=== PATIENT | female | born 1950 | race Asian ===

== ENCOUNTER → 2017-12-31 12:16 | Outpatient (CLI) | payer MEDICARE, OTHER, SELFPAY ==
--- NOTE | 2017-12-31 | DI.MG.S_ITS ---
BILATERAL DIGITAL SCREENING MAMMOGRAM 3D/2D WITH CAD: 12/31/2017 CLINICAL: Routine screening. Comparison is made to exams dated: 11/25/2016 mammogram - [facility], 11/22/2014 mammogram, and 11/20/2012 mammogram - [facility]. The tissue of both breasts is heterogeneously dense. This may lower the sensitivity of mammography. Current study was also evaluated with a Computer Aided Detection (CAD) system. No significant masses, calcifications, or other findings are seen in either breast. There has been no significant interval change. IMPRESSION: NEGATIVE There is no mammographic evidence of malignancy. A 1 year screening mammogram is recommended. This exam was interpreted at Station ID: [id number]. NOTE: For mammograms, a report in lay terms will be sent to the patient. Approximately 15% of breast malignancies will not be visualized mammographically. In the management of a palpable breast mass, a negative mammogram must not discourage biopsy of a clinically suspicious lesion. Electronically Signed By: Solomon gonzalez/josie:12/31/2017 16:02:47 letter sent: Normal Exam ACR BI-RADS Category 1: Negative 3341F
== END ==
PROVIDERS: PCP Internal Medicine; Visit Provider Internal Medicine
DX: Z12.31 Encounter for screening mammogram for malignant neoplasm of breast (principal)
CPT/HCPCS: 77063; 77067

== ENCOUNTER → 2019-01-07 15:32 | Outpatient (CLI) | payer MEDICARE, OTHER, SELFPAY ==
--- NOTE | 2019-01-07 | DI.MG.S_ITS ---
BILATERAL DIGITAL SCREENING MAMMOGRAM 3D/2D WITH CAD: 01/07/2019 CLINICAL: Routine screening. Comparison is made to exams dated: 12/31/2017 mammogram, 11/25/2016 mammogram - [facility], and 11/22/2014 mammogram - [facility]. The tissue of both breasts is heterogeneously dense. This may lower the sensitivity of mammography. Current study was also evaluated with a Computer Aided Detection (CAD) system. No significant masses, calcifications, or other findings are seen in either breast. There has been no significant interval change. IMPRESSION: NEGATIVE There is no mammographic evidence of malignancy. A 1 year screening mammogram is recommended. This exam was interpreted at Station ID: [id number]. NOTE: For mammograms, a report in lay terms will be sent to the patient. Approximately 15% of breast malignancies will not be visualized mammographically. In the management of a palpable breast mass, a negative mammogram must not discourage biopsy of a clinically suspicious lesion. Electronically Signed By: Solomon gonzalez/josie:01/08/2019 07:22:25 letter sent: Normal Exam ACR BI-RADS Category 1: Negative 3341F
== END ==
PROVIDERS: PCP Internal Medicine; Visit Provider Internal Medicine
DX: Z12.31 Encounter for screening mammogram for malignant neoplasm of breast (principal)
CPT/HCPCS: 77063; 77067

== ENCOUNTER → 2019-01-29 07:40 | Outpatient (CLI) | payer MEDICARE, OTHER, SELFPAY ==
[2019-01-29 09:24] LABS: Alanine Aminotransferase 27 IU/L (<35); Aspartate Aminotransferase 45 IU/L (14-36); BUN Creatinine Ratio 24.3 (6-22); Blood Urea Nitrogen 17 mg/dL (7-17); Calcium 9.2 mg/dL (8.4-10.2); Carbon Dioxide 28 mmol/L (22-32); Chloride 104 mmol/L (98-107); Cholesterol 220 mg/dL (140-199); Estimated Glomerular Filt Rate > 60.0 mL/min (>60); Glucose 101 mg/dL (80-110); HDL Cholesterol 96 mg/dL (40-60); HEMOLYSIS < 15 (0-50); LDL Cholesterol Calculated 106 mg/dL (<100); Potassium 4.1 mmol/L (3.4-5.1); Sodium 138 mmol/L (137-145); Triglycerides 90 mg/dL (35-150)
== END ==
PROVIDERS: PCP Internal Medicine; Visit Provider Internal Medicine
DX: Z13.1 Encounter for screening for diabetes mellitus (principal); E78.5 Hyperlipidemia, unspecified
CPT/HCPCS: 36415; 80048; 80061; 84450; 84460

== ENCOUNTER → 2019-02-01 13:16 | Outpatient (CLI) | payer MEDICARE, OTHER, SELFPAY | PROVIDERS: PCP Internal Medicine; Visit Provider Internal Medicine | DX: M85.851 Other specified disorders of bone density and structure, right thigh (principal); Z78.0 Asymptomatic menopausal state | CPT/HCPCS: 77080 ==

== ENCOUNTER → 2019-04-07 07:41 | Outpatient (CLI) | payer MEDICARE, OTHER, SELFPAY ==
[2019-04-07 09:55] LABS: Alanine Aminotransferase 26 IU/L (<35); Aspartate Aminotransferase 44 IU/L (14-36); Cholesterol 190 mg/dL (140-199); HDL Cholesterol 87 mg/dL (40-60); LDL Cholesterol Calculated 88 mg/dL (<100); Triglycerides 77 mg/dL (35-150)
== END ==
PROVIDERS: PCP Internal Medicine; Referring Provider Internal Medicine; Visit Provider Internal Medicine
DX: E78.5 Hyperlipidemia, unspecified (principal)
CPT/HCPCS: 36415; 80061; 84450; 84460

== ENCOUNTER → 2019-10-12 14:45 | Outpatient (CLI) | payer MEDICARE, OTHER, SELFPAY ==
--- NOTE | 2019-10-12 | DI.US.S_ITS ---
PROCEDURE: US SOFT TISSUE HEAD AND NECK INDICATIONS: LOCALIZED SWELLING, MASS AND LUMP, NECK TECHNIQUE: Real-time scanning was performed of the neck region of interest, with image documentation. COMPARISON: None. FINDINGS: No left neck mass, fluid collection or adenopathy seen. IMPRESSION: No left neck abnormality seen. If clinical concern persists for mass, consider contrast-enhanced soft tissue neck CT. Dictated by: Foreign LUND Interpreted: Mik Berry MD on 10/12/2019 at 16:09 Approved by: Mik Berry M.D. on 10/12/2019 at 16:40
== END ==
PROVIDERS: PCP Internal Medicine; Referring Provider Internal Medicine; Visit Provider Physician Assistant
DX: R22.1 Localized swelling, mass and lump, neck (principal)
CPT/HCPCS: 76536

== ENCOUNTER → 2020-01-10 10:16 | Outpatient (CLI) | payer MEDICARE, OTHER, SELFPAY ==
--- NOTE | 2020-01-10 | DI.MG.S_ITS ---
BILATERAL DIGITAL SCREENING MAMMOGRAM 3D/2D WITH CAD: 01/10/2020 CLINICAL: Routine screening. Comparison is made to exams dated: 01/07/2019 mammogram, 12/31/2017 mammogram, 12/30/2016 mammogram, and 11/25/2016 mammogram - [facility]. The tissue of both breasts is heterogeneously dense. This may lower the sensitivity of mammography. Current study was also evaluated with a Computer Aided Detection (CAD) system. There is a benign calcification in both breasts. There is a mole marker on the right breast. No significant masses, calcifications, or other findings are seen in either breast. There has been no significant interval change. IMPRESSION: BENIGN There is no mammographic evidence of malignancy. A 1 year screening mammogram is recommended. This exam was interpreted at Station ID: [id number]. NOTE: For mammograms, a report in lay terms will be sent to the patient. Approximately 15% of breast malignancies will not be visualized mammographically. In the management of a palpable breast mass, a negative mammogram must not discourage biopsy of a clinically suspicious lesion. Electronically Signed By: Mikey Ramsay acr/penrad:01/10/2020 11:51:11 letter sent: Normal Exam ACR BI-RADS Category 2: Benign Finding(s) 3342F
== END ==
PROVIDERS: PCP Student in an Organized Health Care Education/Training Program; Referring Provider Student in an Organized Health Care Education/Training Program; Visit Provider Student in an Organized Health Care Education/Training Program
DX: Z12.31 Encounter for screening mammogram for malignant neoplasm of breast (principal)
CPT/HCPCS: 77063; 77067

== ENCOUNTER 2020-07-15 16:06 | Emergency (ER) | payer MEDICARE, OTHER, SELFPAY ==
[2020-07-15 16:13] VITALS: PULSE 80; RESP 14; O2SAT 98
[2020-07-15 16:20] VITALS: BP 188/80; PULSE 82; RESP 16; TEMP 36.7; O2SAT 99
--- NOTE | 2020-07-15 16:23 | PC.NURSE ---
finished Sulfa/meth/tri 7 day course on Friday.
--- NOTE | 2020-07-15 16:31 | ED.SKABFB ---
HPI - Skin/Abscess/Foreign Bdy General Chief complaint: Skin/Abscess/Foreign Body Stated complaint: redness on face,neck, arms Time Seen by Provider: 07/15/20 16:17 Source: patient Mode of arrival: Ambulatory Limitations: no limitations History of Present Illness HPI narrative: This is a 70-year-old female comes in with complaint of rash that is pruritic that arose overnight patient states that she had a spot on her right elbow that was erythematous, swollen and had improved after being treated with Bactrim. She completed her antibiotics on Friday. Since then she has developed a rash in the last day which she describes as being on the face, her lower lip has some mild swelling as well as neck, anterior chest and bilateral hands and forearms. Patient states it is not really present elsewhere she denies any presence on her torso or back or lower extremities. She states she has not had any new exposures otherwise. She denies any new lotions, sun screens or other topical on her skin in that pattern. Patient did try some topical Benadryl which was minimally helpful. She denies any intraoral involvement. She denies any tightness or difficulty with swallowing, she denies any chest pain or shortness of breath. No nausea or vomiting no other GI or urinary symptoms. She has had an allergic reaction to a fertilizer when she has touched it or had exposures with her pupils are lawns. She does not believe she has had any recent exposure. She is unaware of any other drug allergies. She takes medication for dyslipidemia. Related Data Previous Rx's Medication Instructions Recorded atorvastatin 40 mg tablet 40 mg PO DAILY #90 tab 05/31/20 clotrimazole-betamethasone 1 1 applic TOPICAL BID 14 Days #15 g 07/05/20 %-0.05 % topical cream prednisone 40 mg PO DAILY #8 tab 07/15/20 Allergies Allergy/AdvReac Type Severity Reaction Status Date / Time No Known Drug Allergies Allergy Unverified 07/05/20 14:33 Review of Systems Review of Systems ROS Unobtainable: All systems reviewed & are unremarkable except as noted in HPI and below Patient History Medical History (Updated 07/15/20 @ 16:56 by Dulce Reeves DO) Dyslipidemia Social History Smoking Status: Former smoker Smoking Status: Former smoker alcohol intake frequency: 0-2 drinks per day Substance Use Type: does not use Exam Narrative Exam Narrative: GEN: well nourished, well appearing female, alert and oriented x 3, patient appears to be in mild distress. HEENT: Atraumatic, pupils are equal round reactive to light, extraocular movements are intact, nares are clear, Throat is clear without any exudates, erythema, tonsillar enlargement or uvular deviation, patient has some mild erythema and swelling of her outer edge of her lower lip, she does not have any other intraoral involvement. No blistering. HEART: Regular rate and rhythm without murmur, clicks, rubs. LUNGS:Lungs clear to auscultation, no wheezes, rales, crackles, chest moves symmetrically ABD:bowel sounds normal, soft, non-tender, no guarding, rebound, rigidity, no masses noted, no hepatosplenomegaly MSCL: Non-tender, full range of motion. Patient does not have any bony tenderness at the right elbow. Full range of motion. She does have a rubbery most on jeweler like area of swelling adjacent to the elbow but not directly over the joint. It is nontender without any fluctuance. NEURO:CN 2-12 intact, sensation normal SKIN: Patient has an erythematous, patchy raised rash consistent with meals on the face, neck and upper anterior chest as well as bilateral forearms. Patient has some mild erythema over the thenar eminence but no other palmar involvement. There is no blisters. Initial Vital Signs Initial Vital Signs: Vital Signs Pulse Rate 80 07/15/20 16:13 Respiratory Rate 14 07/15/20 16:13 Pulse Oximetry 98 07/15/20 16:13 Course Orders Ordered: Discontinued Medications Prednisone (Prednisone 20 Mg Tablet) 60 mg PO NOW ONE Stop: 07/15/20 16:51 Last Admin: 07/15/20 17:05 Dose: 60 mg Documented by: KATHARINE Vital Signs Vital signs: Vital Signs - 8 hr 07/15/20 16:13 07/15/20 16:20 07/15/20 17:06 Temperature 98.1 F Pulse Rate 80 82 69 Respiratory Rate 14 16 18 Blood Pressure 188/80 H 178/79 H Pulse Oximetry 98 99 97 MDM - Skin/Abscess/Foreign Bdy MDM Narrative Medical decision making narrative: This is a 70-year-old female comes in with complaint of rash that developed last 12 hours after completing an antibiotic 4 days ago. Discussed this may be a reaction to the antibiotic which was Bactrim. Her initial infection has improved and she has follow-up on Friday with her primary care for recheck. No symptoms consistent with a Arreola-Kumar, TENS he has full or other concerning changes. The rash seems to be very specific to sun exposed areas including the face, upper chest at the neckline as well as forearms. Plan for prednisone, Benadryl as needed and patient is already scheduled for follow-up with her primary care. Return precautions were discussed as well as signs and symptoms to watch for. Patient feels comfortable with this plan. Discharge Plan Departure Patient Disposition: Home Clinical Impression: Rash Instructions: DI for Rash Activity Restrictions/Additional Instructions: Follow-up with your physician at your scheduled appointment on Friday. Let them know about your recent symptoms even if they have completely resolved. Keep track of the pad any new exposures, to sunscreens, lotions, soaps, new foods or other potential exposures. Your symptoms may be related to the Bactrim or antibiotic you completed on Friday so be sure to let your physician know. Take steroids once daily until gone. You may take Benadryl or diphenhydramine 25 mg, 1-2 tablets every 6 hours as needed for itching or symptoms. Prescription to [facility] in [place]. Please return for fevers greater 100.4 F, rapidly worsening rash or skin changes, blistering of your rash or involvement of the inside of your mouth, eyes or vaginal area, if you are having tightness or difficulty breathing in her throat wheezing, shortness of breath, lightheadedness or passing out, persistent vomiting, black or bloody stools or other new or concerning symptoms. Prescriptions: New prednisone 20 mg tablet 40 mg PO DAILY Qty: 8 RF: 0 No Action atorvastatin 40 mg tablet 40 mg PO DAILY Qty: 90 RF: 2 clotrimazole-betamethasone 1-0.05 % cream 1 applic topical BID 14 Days Qty: 15 RF: 0 Referrals: Andres Shah MD [Primary Care Provider] -
[2020-07-15] MEDS: predniSONE 20 MG TABLET 60 MG PO (17:05)
[2020-07-15 17:06] VITALS: BP 178/79; PULSE 69; RESP 18; O2SAT 97
== END 2020-07-15 17:08 | disposition home or self-care (01) ==
PROVIDERS: Emergency Provider Emergency Medicine; PCP Student in an Organized Health Care Education/Training Program
DX: R21 Rash and other nonspecific skin eruption (principal)
CPT/HCPCS: 99283

== ENCOUNTER → 2021-01-10 17:08 | Outpatient (CLI) | payer MEDICARE, OTHER, SELFPAY ==
--- NOTE | 2021-01-10 | DI.MG.S_ITS ---
BILATERAL DIGITAL SCREENING MAMMOGRAM 3D/2D WITH CAD: 01/10/2021 CLINICAL: Routine screening. Comparison is made to exams dated: 01/10/2020 mammogram, 01/07/2019 mammogram, and 12/31/2017 mammogram - [facility]. The tissue of both breasts is heterogeneously dense. This may lower the sensitivity of mammography. Current study was also evaluated with a Computer Aided Detection (CAD) system. There is a benign calcification in both breasts. There is a mole marker on the right breast. No significant masses, calcifications, or other findings are seen in either breast. There has been no significant interval change. IMPRESSION: BENIGN There is no mammographic evidence of malignancy. A 1 year screening mammogram is recommended. This exam was interpreted at Station ID: [id number]. NOTE: For mammograms, a report in lay terms will be sent to the patient. Approximately 15% of breast malignancies will not be visualized mammographically. In the management of a palpable breast mass, a negative mammogram must not discourage biopsy of a clinically suspicious lesion. Electronically Signed By: Durga rizvi/josie:01/11/2021 07:53:06 letter sent: Normal Exam ACR BI-RADS Category 2: Benign Finding(s) 3342F
== END ==
PROVIDERS: PCP Student in an Organized Health Care Education/Training Program; Referring Provider Student in an Organized Health Care Education/Training Program; Visit Provider Student in an Organized Health Care Education/Training Program
DX: Z12.31 Encounter for screening mammogram for malignant neoplasm of breast (principal)
CPT/HCPCS: 77063; 77067

== ENCOUNTER → 2021-05-29 10:07 | Outpatient (CLI) | payer MEDICARE, OTHER, SELFPAY | PROVIDERS: PCP Student in an Organized Health Care Education/Training Program; Referring Provider Student in an Organized Health Care Education/Training Program; Visit Provider Student in an Organized Health Care Education/Training Program | DX: M85.89 Other specified disorders of bone density and structure, multiple sites (principal); Z78.0 Asymptomatic menopausal state | CPT/HCPCS: 77080 ==

== ENCOUNTER → 2022-01-24 08:08 | Outpatient (CLI) | payer MEDICARE, OTHER, SELFPAY ==
--- NOTE | 2022-01-24 | DI.MG.S_ITS ---
BILATERAL DIGITAL SCREENING MAMMOGRAM 3D/2D WITH CAD: 01/24/2022 CLINICAL: Routine screening. Comparison is made to exams dated: 01/10/2021 mammogram, 01/10/2020 mammogram, and 01/07/2019 mammogram - [facility]. Both breasts are heterogeneously dense, which may obscure small masses (category c / 51-75% glandular tissue). Current study was also evaluated with a Computer Aided Detection (CAD) system. There is a possible new 0.4 cm irregular equal density focal asymmetry in the right breast at 11 o'clock posterior depth. No other significant masses, calcifications, or other findings are seen in either breast. IMPRESSION: INCOMPLETE: NEEDS ADDITIONAL IMAGING EVALUATION The possible new 0.4 cm irregular equal density focal asymmetry in the right breast is indeterminate. Additional views with possible ultrasound are recommended. Based on the Tyrer Cuzick model (a risk assessment model) the patient's lifetime risk is 7.9% and her 10 year risk is 5.0%. According to the ACR, ACS, and NCCN guidelines, an annual breast MRI exam along with mammogram is recommended if the patient's lifetime risk is 20% or greater. This exam was interpreted at Station ID: [id number]. NOTE: For mammograms, a report in lay terms will be sent to the patient. Approximately 15% of breast malignancies will not be visualized mammographically. In the management of a palpable breast mass, a negative mammogram must not discourage biopsy of a clinically suspicious lesion. Electronically Signed By: Durga rizvi/josie:01/24/2022 17:14:46 letter sent: Additional Imaging Needed ACR BI-RADS Category 0: Incomplete 3340F
== END ==
PROVIDERS: PCP Student in an Organized Health Care Education/Training Program; Referring Provider Student in an Organized Health Care Education/Training Program; Visit Provider Student in an Organized Health Care Education/Training Program
DX: Z12.31 Encounter for screening mammogram for malignant neoplasm of breast (principal)
CPT/HCPCS: 77063; 77067

== ENCOUNTER → 2022-02-26 13:31 | Outpatient (CLI) | payer MEDICARE, OTHER, SELFPAY ==
--- NOTE | 2022-02-26 | DI.MG.S_ITS ---
UNILATERAL RIGHT DIGITAL DIAGNOSTIC MAMMOGRAM 3D/2D WITH ADDITIONAL VIEWS: 02/26/2022 CLINICAL: Additional evaluation requested from prior study. Comparison is made to exams dated: 01/24/2022 mammogram, 01/10/2021 mammogram, and 01/10/2020 mammogram - [facility]. The right breast is heterogeneously dense, which may obscure small masses (category c / 51-75% glandular tissue). The focal asymmetry in the right breast at 11 o'clock posterior depth is not seen in additional views. No other significant masses or calcifications are seen in the breast. IMPRESSION: BENIGN The focal asymmetry in the right breast seen on the screening mammogram likely respresents superimposed fibroglandular tissue and is benign. There is no mammographic evidence of malignancy. Return to annual mammogram screening schedule is recommended. Based on the Tyrer Cuzick model (a risk assessment model) the patient's lifetime risk is 7.9% and her 10 year risk is 5.0%. According to the ACR, ACS, and NCCN guidelines, an annual breast MRI exam along with mammogram is recommended if the patient's lifetime risk is 20% or greater. This exam was interpreted at Station ID: [id number]. NOTE: For mammograms, a report in lay terms will be sent to the patient. Approximately 15% of breast malignancies will not be visualized mammographically. In the management of a palpable breast mass, a negative mammogram must not discourage biopsy of a clinically suspicious lesion. Electronically Signed By: Alexandria fournier/:02/26/2022 13:54:06 letter sent: Normal Exam ACR BI-RADS Category 2: Benign Finding(s) 3342F
== END ==
PROVIDERS: PCP Student in an Organized Health Care Education/Training Program; Referring Provider Student in an Organized Health Care Education/Training Program; Visit Provider Student in an Organized Health Care Education/Training Program
DX: R92.8 Other abnormal and inconclusive findings on diagnostic imaging of breast (principal); N64.89 Other specified disorders of breast
CPT/HCPCS: 77065; G0279

== ENCOUNTER → 2022-06-10 13:51 | Outpatient (CLI) | payer MEDICARE, OTHER, SELFPAY ==
[2022-06-10 14:56] LABS: Alanine Aminotransferase 32 IU/L (<35); Albumin 4.2 g/dL (3.5-5.0); Albumin Globulin Ratio 1.3 (1.0-2.8); Alkaline Phosphatase 80 U/L (38-126); Aspartate Aminotransferase 49 IU/L (14-36); BUN Creatinine Ratio 24.1 (6-22); Bilirubin Total 0.9 mg/dL (0.2-1.3); Blood Urea Nitrogen 21 mg/dL (7-17); Carbon Dioxide 29 mmol/L (22-32); Chloride 103 mmol/L (98-107); Cholesterol 239 mg/dL (140-199); Estimated Glomerular Filt Rate > 60 mL/min (>60); Globulin 3.2 g/dL (1.7-4.1); Glucose 96 mg/dL (80-110); HEMOLYSIS < 15 (0-50); Potassium 3.4 mmol/L (3.4-5.1); Sodium 139 mmol/L (137-145); Total Protein 7.4 g/dL (6.3-8.2); Triglycerides 186 mg/dL (35-150)
[2022-06-10 15:10] LABS: HDL Cholesterol 126 mg/dL (40-60); LDL Cholesterol Calculated 76 mg/dL (<100)
[2022-06-10 17:13] LABS: Hep C Virus Ab w/Reflex Quant NEGATIVE s/c (NEGATIVE)
== END ==
PROVIDERS: PCP Student in an Organized Health Care Education/Training Program; Referring Provider Student in an Organized Health Care Education/Training Program; Visit Provider Student in an Organized Health Care Education/Training Program
DX: E78.2 Mixed hyperlipidemia (principal); N39.3 Stress incontinence (female) (male); Z79.899 Other long term (current) drug therapy; Z11.59 Encounter for screening for other viral diseases
CPT/HCPCS: 36415; 80053; 80061; 86803

== ENCOUNTER → 2023-03-06 09:02 | Outpatient (CLI) | payer MEDICARE, OTHER, SELFPAY ==
--- NOTE | 2023-03-06 09:05 | DI.MG.S_ITS ---
BILATERAL DIGITAL SCREENING MAMMOGRAM 3D/2D WITH CAD: 03/06/2023 CLINICAL: Routine screening. Comparison is made to exams dated: 02/26/2022 mammogram, 01/24/2022 mammogram, and 01/10/2021 mammogram - [facility]. Both breasts are heterogeneously dense, which may obscure small masses (category c / 51-75% glandular tissue). Current study was also evaluated with a Computer Aided Detection (CAD) system. No significant masses, calcifications, or other findings are seen in either breast. There has been no significant interval change. IMPRESSION: NEGATIVE There is no mammographic evidence of malignancy. A 1 year screening mammogram is recommended. Based on the Tyrer Cuzick model (a risk assessment model) the patient's lifetime risk is 7.4% and her 10 year risk is 5.1%. According to the ACR, ACS, and NCCN guidelines, an annual breast MRI exam along with mammogram is recommended if the patient's lifetime risk is 20% or greater. This exam was interpreted at Station ID: [id number]. NOTE: For mammograms, a report in lay terms will be sent to the patient. Approximately 15% of breast malignancies will not be visualized mammographically. In the management of a palpable breast mass, a negative mammogram must not discourage biopsy of a clinically suspicious lesion. Electronically Signed By: Elie arteaga/josie:03/06/2023 12:53:23 letter sent: Normal Exam ACR BI-RADS Category 1: Negative 3341F
== END ==
LOC: MAMMO 09:04
PROVIDERS: Referring Provider Internal Medicine; Visit Provider Internal Medicine
DX: Z12.31 Encounter for screening mammogram for malignant neoplasm of breast (principal); R92.333 Mammographic heterogeneous density, bilateral breasts
CPT/HCPCS: 77063; 77067

== ENCOUNTER → 2023-04-11 14:42 | Outpatient (CLI) | payer MEDICARE, OTHER, SELFPAY ==
--- NOTE | 2023-04-11 | DI.ECHO.S_ITS ---
[facility]---------[facility] +---------+ : : [address] : : : : [id number] : : : : Phone: [phone]+ Echocardiogram Report + + :Name: LIZET PALMA Study Date: 04/11/2023 Height: 59 in : :[facility] : Weight: 115 lb : : Gender: Female BSA: 1.5 m2 : :: 1950 Age: 72 yrs BP: 158/88 mmHg: :Reason For Study: EDEMA : :Ordering Physician: : :JOANNA POOLformed By: Clarence Oneill : :Referring: UNSPECIFIED : + + Interpretation Summary The left ventricle is normal in size and wall thickness. Left ventricular systolic function appears normal without focal wall motion abnormalities. The ejection fraction is estimated to be 60-65%. Diastolic parameters suggest probable normal left ventricular diastolic function and normal filling pressures. The right ventricle is normal in size and function. The right ventricular systolic pressure is estimated to be at least 26 mmHg based on an estimated right atrial pressure of 3 mm Hg. The left atrium is mildly dilated. There is no significant valvular heart disease. The aortic root is normal size. Procedure: A two-dimensional transthoracic echocardiogram with color flow and Doppler was performed. The study quality was technically adequate. There is no prior echocardiogram noted for this patient. The patient was in normal sinus rhythm during the exam. The heart rate ranged between 65-79 bpm during the study. Left Ventricle: The left ventricle is normal in size and wall thickness. Left ventricular systolic function appears normal without focal wall motion abnormalities. The ejection fraction is estimated to be 60-65%. Diastolic parameters suggest probable normal left ventricular diastolic function and normal filling pressures. Right Ventricle: The right ventricle is normal in size and function. Atria: The left atrium is mildly dilated. Right atrial size is normal. Mitral Valve: The mitral valve is normal in structure and function. There is no mitral valve stenosis. There is trace mitral regurgitation. Aortic Valve: The aortic valve is trileaflet. There is no aortic valve stenosis. No aortic regurgitation is present. Tricuspid Valve: The tricuspid valve is normal in structure and function. There is no tricuspid stenosis. There is a trace or physiologic amount of tricuspid regurgitation. The right ventricular systolic pressure is estimated to be at least 26 mmHg based on an estimated right atrial pressure of 3 mm Hg. Pulmonic Valve: The pulmonic valve is normal in structure and function. There is no pulmonic valvular stenosis. There is no pulmonic valvular regurgitation. There is no significant valvular heart disease. Great Vessels: The aortic root is normal size. The dimensions of the ascending aorta are normal. The aortic arch is at the upper limits of normal in size. The IVC is of normal diameter and collapses greater than 50% with a sniff. This suggests a low right atrial pressure of 3 mm Hg. Pericardium/ Pleura There is no pericardial effusion. There is no pleural effusion. MMode/2D Measurements & Calculations LVIDd: 3.8 cm LVOT diam: 1.9 cm LVIDs: 2.4 cm Ao root diam: 2.6 cm FS: 36.5 % asc Aorta Diam: 3.2 cm IVSd: 0.87 cm Ao Arch Diam (Prox Trans): 3.2 cm LVPWd: 0.87 cm LV carlson. diameter/BSA (cm/m^2): 2.6 LV sys. diameter/BSA (cm/m^2): 1.7 LA A2 area: 17.4 cm2 RA long axis: 4.1 cm LA A4 area: 19.0 cm2 RA area: 9.7 cm2 LA length (vol): 5.2 cm RA vol: 19.4 ml LA vol: 54.1 ml RA : 13.3 ml/m2 LA vol index: 37.1 ml/m2 IVC diam: 1.4 cm RVD1 (basal): 4.0 cm RVD2 (mid): 2.9 cm TAPSE: 1.9 cm Doppler Measurements & Calculations Ao V2 max: 128.8 cm/sec LVOT Max Ramez: 92.6 cm/sec Ao V2 mean: 92.3 cm/sec LV V1 max P.4 mmHg Ao max P.6 mmHg LV V1 VTI: 24.7 cm Ao mean P.7 mmHg CHUN(I,D): 2.2 cm2 Ao V2 VTI: 30.6 cm CHUN(V,D): 1.9 cm2 sev ratio: 0.81 CHUN indexed to BSA (cm^2/m^2): 1.5 MV E max ramez: 83.3 cm/sec TR max ramez: 241.4 cm/sec MV A max ramez: 80.4 cm/sec TR max P.5 mmHg MV E/A: 1.0 PA V2 max: 93.3 cm/sec Med Peak E' Ramez: 7.6 cm/sec PA V2 mean: 67.8 cm/sec E/E' med: 11.0 PA mean P.0 mmHg Lat Peak E' Ramez: 9.7 cm/sec PA pr(Accel): 20.8 mmHg E/E' lat: 8.6 E/e' average: 9.8 MV dec time: 0.19 sec SV(LVOT): 66.8 ml Reading Physician:01:00 PM
== END ==
PROVIDERS: Referring Provider Student in an Organized Health Care Education/Training Program; Visit Provider Student in an Organized Health Care Education/Training Program
DX: I10 Essential (primary) hypertension (principal); R60.0 Localized edema
CPT/HCPCS: 93306

== ENCOUNTER → 2023-04-30 10:06 | Outpatient (CLI) | payer MEDICARE, OTHER, SELFPAY ==
[2023-04-30 11:42] LABS: Alanine Aminotransferase 32 IU/L (<35); Albumin 4.4 g/dL (3.5-5.0); Albumin Globulin Ratio 1.3 (1.0-2.8); Alkaline Phosphatase 86 U/L (38-126); Aspartate Aminotransferase 62 IU/L (14-36); BUN Creatinine Ratio 32.9 (6-22); Blood Urea Nitrogen 24 mg/dL (7-17); Calcium 9.7 mg/dL (8.4-10.2); Carbon Dioxide 36 mmol/L (22-32); Chloride 99 mmol/L (98-107); Estimated Glomerular Filt Rate > 60 mL/min (>60); Globulin 3.4 g/dL (1.7-4.1); Glucose 99 mg/dL (80-110); HEMOLYSIS < 15 (0-50); Potassium 3.3 mmol/L (3.4-5.1); Sodium 137 mmol/L (137-145); Total Protein 7.8 g/dL (6.3-8.2)
== END ==
LOC: LAB 10:08
PROVIDERS: PCP Family Medicine; Referring Provider Family Medicine; Visit Provider Family Medicine
DX: I10 Essential (primary) hypertension (principal); R60.0 Localized edema
CPT/HCPCS: 36415; 80053

== ENCOUNTER → 2023-08-22 09:05 | Outpatient (CLI) | payer MEDICARE, OTHER, SELFPAY ==
[2023-08-22 09:55] LABS: Hematocrit 38.7 % (36-46); Hemoglobin 13.3 g/dL (12.0-16.0); Mean Corpuscular HGB Conc 34.3 % (30-36); Mean Corpuscular Hemoglobin 30.1 PG (26-34); Mean Corpuscular Volume 87.8 fL (80-100); Platelet Count 213 X10^3/uL (150-400); Red Blood Cell Count 4.41 X10^6/uL (4.0-5.2); Red Cell Distribution Width 13.4 % (11.6-14.8); White Blood Cell Count 3.9 X10^3/uL (4.5-11.0)
[2023-08-22 10:27] LABS: Alanine Aminotransferase 50 IU/L (<35); Albumin 4.1 g/dL (3.5-5.0); Albumin Globulin Ratio 1.5 (1.0-2.8); Alkaline Phosphatase 80 U/L (38-126); Aspartate Aminotransferase 69 IU/L (14-36); Bilirubin Total 0.7 mg/dL (0.2-1.3); Blood Urea Nitrogen 18 mg/dL (7-17); Calcium 9.6 mg/dL (8.4-10.2); Carbon Dioxide 36 mmol/L (22-32); Chloride 99 mmol/L (98-107); Cholesterol 195 mg/dL (140-199); Estimated Glomerular Filt Rate > 60 mL/min (>60); Globulin 2.8 g/dL (1.7-4.1); Glucose 104 mg/dL (80-110); HDL Cholesterol 98 mg/dL (40-60); HEMOLYSIS < 15 (0-50); LDL Cholesterol Calculated 71 mg/dL (<100); Potassium 3.4 mmol/L (3.4-5.1); Sodium 135 mmol/L (137-145); Total Protein 6.9 g/dL (6.3-8.2); Triglycerides 130 mg/dL (35-150)
[2023-08-22 11:03] LABS: TSH w/ Reflex to FT4 0.88 uIU/mL (0.47-4.68)
== END ==
PROVIDERS: PCP Internal Medicine; Referring Provider Internal Medicine; Visit Provider Internal Medicine
DX: E78.2 Mixed hyperlipidemia (principal); I10 Essential (primary) hypertension
CPT/HCPCS: 36415; 80053; 80061; 84443; 85027

== ENCOUNTER 2023-11-20 10:32 | Day surgery (SDC) | payer MEDICARE, OTHER, SELFPAY ==
--- NOTE | 2023-11-20 | PATH_ITS ---
[facility] Accession Number: [id number] No. of containers..01 Tissue . 01 Material submitted: . colon - TRANSVERSE POLYP . 01 Diagnosis: TRANSVERSE COLON, POLYP: Tubular adenoma. MRV 11/25/2023 1133 Local . 01 Electronically signed: . Rosmery Lyle MD, Pathologist NPI- [id number] . 01 Gross description: . Received in formalin with two patient identifiers and transverse polyp, is a single grace soft tissue fragments, 0.5 cm in greatest dimension. Submitted in A1. ([id number]) /MRV 11/23/2023 1158 Local . 01 Pathologist provided ICD-10: D12.3 . 01 CPT . 533800 Specimen Comment: A courtesy copy of this report has been sent to [phone] Performed at: [address] [facility] [id number] MD Solomon Elizondo MD Phone: [phone]
[2023-11-20] MEDS: LACTATED RINGERS 1,000 ML 100 ML IV (10:45)
--- NOTE | 2023-11-20 10:46 | PM.HP.1 ---
History of Present Illness History of Present Illness Date Patient Seen: 11/20/23 Time Patient Seen: 10:46 Chief complaint: Screening Colonoscopy Narrative: Cassie is a 73-year-old woman here for colonoscopy. Her last was about 8 years ago and was normal. No family history of colon cancer. No history of polyps. [facility] Medical History (Updated 11/20/23 @ 10:47 by Kalia Barajas MD) Essential hypertension Osteopenia Stress incontinence (female) (male) Allergic rhinitis Mixed hyperlipidemia Social History details: (Price), 1 daughter, retired [employer] Smoking Status: Former smoker Meds Home Medications and Allergies Home Medications Medication Instructions Recorded Confirmed Type chlorthalidone 25 mg tablet 25 mg PO DAILY #90 tabs 08/07/23 11/05/23 Rx losartan 50 mg tablet 50 mg PO DAILY #90 tabs 08/07/23 11/05/23 Rx atorvastatin 40 mg tablet 40 mg PO DAILY #90 tabs 08/21/23 11/05/23 Rx peg 3350-sod sulf,kpcpy-qud-cmv 1,000 ml PO DIRECTED #2,000 mL 10/09/23 11/05/23 Rx 178.7-7.3-0.5-1.12-0.9 gram oral soln (Suflave) mefloquine 250 mg tablet 250 mg PO QWEEK #10 tabs 11/05/23 11/05/23 Rx Allergies Allergy/AdvReac Type Severity Reaction Status Date / Time lisinopril AdvReac Intermediate Cough Verified 11/05/23 10:32 Exam Const General: healthy appearing Assessment & Plan Assessment and plan (1) Colon cancer screening: Status: Acute Plan Screening colonoscopy Time-Based Coding :: [TOTAL MINUTES] spent with patient and on the chart (including review of chart, obtaining history, exam, reviewing outside data, placing orders, documenting exam and treatment plan, and counseling patient) on [DATE].
[2023-11-20 10:52] VITALS: BP 156/78; PULSE 79; RESP 16; TEMP 36.3; O2SAT 99
--- NOTE | 2023-11-20 11:12 | PM.OP.COLON ---
Operative Date/Time/Diagnoses Date of procedure: 11/20/23 Time of procedure: 11:12 Pre-op diagnosis: Colon cancer screening Post-op diagnosis: same Procedure & Clinicians Study performed: Colonoscopy Same procedure as scheduled: Yes Surgeon: Kalia Barajas Procedure Notes Procedure in detail: Surgeon: Kalia Barajas MD Anesthesia: Rosie Henley CRNA Procedure: The patient was brought to the endoscopy suite, placed in left lateral decubitus position. The patient was connected to monitoring devices. A time-out was performed. Sedation was administered. Once the patient was adequately sedated, a digital rectal exam was performed and was normal. The scope was then inserted and advanced to the cecum where the appendiceal orifice was identified and photographed. The scope was then slowly withdrawn over greater than 6 minutes. The mucosa was thoroughly inspected. There was a 5 mm polyp in the transverse colon removed with a cold snare. No other abnormalities were identified. The scope was retroflexed in the rectum. No other abnormalities were seen. The scope was straightened and removed. The patient was awakened and brought to recovery. Scope withdrawal time: 7 minutes Sedation time: 13 minutes EBL: 5 mL Findings: 5 mm polyp in the transverse colon Post-procedure Disposition: PACU
[2023-11-20 11:13] VITALS: BP 109/47; PULSE 63; RESP 18; TEMP 36.1; O2SAT 98
[2023-11-20 11:18] VITALS: BP 108/55; PULSE 61; RESP 16; O2SAT 100
[2023-11-20 11:21] VITALS: BP 131/45; PULSE 70; RESP 18; TEMP 36.6; O2SAT 100
[2023-11-20 11:26] VITALS: BP 139/59; PULSE 67; RESP 16; O2SAT 100
== END 2023-11-20 11:36 | disposition home or self-care (01) ==
PROVIDERS: PCP Internal Medicine; Referring Provider Surgery; Visit Provider Surgery
PROC: 0DJD8ZZ Inspection of Lower Intestinal Tract, Via Natural or Artificial Opening Endoscopic (ICD-10-PCS; CPT 45378; principal; 2023-11-20 11:45)
DX: Z12.11 Encounter for screening for malignant neoplasm of colon (principal); D12.3 Benign neoplasm of transverse colon
CPT/HCPCS: 45385

== ENCOUNTER → 2024-08-02 10:12 | Outpatient (CLI) | payer MEDICARE, OTHER, SELFPAY ==
[2024-08-02 11:21] LABS: Aspartate Aminotransferase 59 IU/L (14-36); BUN Creatinine Ratio 30.8 (6-22); Blood Urea Nitrogen 24 mg/dL (7-17); Calcium 9.8 mg/dL (8.4-10.2); Carbon Dioxide 31 mmol/L (22-32); Chloride 100 mmol/L (98-107); Cholesterol 245 mg/dL (140-199); Estimated Glomerular Filt Rate > 60 mL/min (>60); Glucose 99 mg/dL (70-99); HDL Cholesterol 108 mg/dL (40-60); HEMOLYSIS 17 (0-50); LDL Cholesterol Calculated 110 mg/dL (<100); Potassium 3.9 mmol/L (3.4-5.1); Sodium 136 mmol/L (137-145); Triglycerides 134 mg/dL (35-150)
== END ==
PROVIDERS: PCP Internal Medicine; Referring Provider Internal Medicine; Visit Provider Internal Medicine
DX: I10 Essential (primary) hypertension (principal); E78.2 Mixed hyperlipidemia
CPT/HCPCS: 36415; 80048; 80061; 84450

== ENCOUNTER → 2024-08-16 11:16 | Outpatient (CLI) | payer MEDICARE, OTHER, SELFPAY ==
--- NOTE | 2024-08-16 11:17 | DI.MG.S_ITS ---
MM screening mammo BI: 08/16/2024. BI-RADS: 1 CLINICAL: 74-year old female for bilateral screening mammogram. Tyrer-Cuzick lifetime risk of 3.7%. No personal or first-degree family history of breast cancer. PRIOR EXAMS 03/06/2023, 02/26/2022, 01/24/2022, 01/10/2021, 01/10/2020, 01/07/2019, 12/31/2017, 12/30/2016, 11/25/2016. MAMMOGRAPHY TECHNIQUE: 2D and 3D (tomosynthesis) digital mammographic views obtained, with additional images as needed for full coverage. Current study was also evaluated with a Computer Aided Detection (CAD) system. DENSITY C. The breasts are heterogeneously dense, which may obscure small masses. MAMMOGRAPHY FINDINGS Bilateral: No suspicious mass, asymmetry, microcalcification, or other abnormality seen. IMPRESSION: * No evidence of malignancy. RECOMMENDATIONS Bilateral * Annual screening mammography. OVERALL ASSESSMENT CATEGORY BI-RADS-1: Negative. The [employer] recommends annual screening mammography beginning at age 40 for women with average risk of breast cancer. ELECTRONICALLY SIGNED: Durga Dyer M.D. on 08/16/2024 at 04:51:21 PM PT Interpreting Station ID: [id number]
== END ==
LOC: MAMMO 11:17
PROVIDERS: PCP Internal Medicine; Referring Provider Internal Medicine; Visit Provider Internal Medicine
DX: Z12.31 Encounter for screening mammogram for malignant neoplasm of breast (principal); R92.333 Mammographic heterogeneous density, bilateral breasts
CPT/HCPCS: 77063; 77067

== ENCOUNTER → 2024-11-17 15:29 | Outpatient (CLI) | payer MEDICARE, OTHER, SELFPAY ==
[2024-11-17 16:15] LABS: Influenza A - CEPHEID Flu A NEGATIVE (NEGATIVE); Influenza B - CEPHEID Flu B NEGATIVE (NEGATIVE)
[2024-11-17 16:19] LABS: COVID-19 CEPHEID 4-PLEX PCR POSITIVE (Negative)
== END ==
LOC: LAB 15:30
PROVIDERS: PCP Internal Medicine; Visit Provider Nurse Practitioner Family
DX: R05.1 Acute cough (principal)
CPT/HCPCS: 87637